=== PATIENT | male | born 1945 | race Caucasian/White ===

== ENCOUNTER 2018-12-06 11:37 | Inpatient (IN) | payer OTHER, MEDICARE ==
[~2018-12-06] VITALS: Ht 170.2 cm; Wt 63.5 kg
[2018-12-06 11:57] LABS: PCO2 Arterial 29.4 mmHg (35-45); PO2 Arterial 71.7 mmHg (80-100); pH Blood Arterial 7.42 (7.35-7.45)
[2018-12-06 12:03] LABS: BASOPHILS ABSOLUTE AUTO 0.04 K/mm3 (0.00-0.23); BASOPHILS PERCENT AUTO 0 % (0-2); EOSINOPHILS ABSOLUTE AUTO 0.01 K/mm3 (0.00-0.68); EOSINOPHILS PERCENT AUTO 0 % (0-6); Hematocrit 43.6 % (37.0-53.0); Hemoglobin 14.7 g/dL (13.5-17.5); IMMATURE GRAN ABSOLUTE AUTO 0.11 K/mm3 (0.00-0.10); IMMATURE GRAN PERCENT AUTO 1 % (0-1); LYMPHOCYTES ABSOLUTE AUTO 0.87 K/mm3 (0.84-5.20); LYMPHOCYTES PERCENT AUTO 4 % (21-46); MONOCYTES ABSOLUTE AUTO 0.68 K/mm3 (0.16-1.47); MONOCYTES PERCENT AUTO 3 % (4-13); Mean Corpuscular HGB Conc 33.7 g/dL (31.5-36.5); Mean Corpuscular Volume 95 fL (80-100); Mean Platelet Volume 11.1 fL (9.1-12.4); NEUTROPHILS ABSOLUTE AUTO 20.72 K/mm3 (1.96-9.15); NEUTROPHILS PERCENT AUTO 92 % (41-73); NRBC ABSOLUTE 0.02 K/mm3 (0.00-0.02); NRBC Auto 0.1 /100 WBC (0.0-0.2); Platelet Count 208 K/mm3 (150-400); RDW Coefficient Variation 14.6 % (11.7-14.2); RDW Standard Deviation 50.8 fL (35.1-46.3); Red Blood Cell Count 4.59 M/mm3 (4.30-5.90); White Blood Cell Count 22.43 K/mm3 (4.00-11.30)
[2018-12-06 12:26] LABS: Alanine Aminotransfer (ALT/SGP 42 U/L (12-78); Albumin/Globulin Ratio 0.8 (0.8-1.8); Alk Phos 125 U/L (50-136); Anion Gap 11 mmol/L (6-16); Aspartate Aminotrans (AST/SGOT 47 U/L (12-37); Bilirubin, Total 0.8 mg/dL (0.1-1.0); Blood Urea Nitrogen 8 mg/dL (8-24); Bun/Creatinine Ratio 7.9 (12.0-20.0); CO2, Blood 23 mmol/L (21-32); Calcium, Blood 8.1 mg/dL (8.5-10.1); Chloride, Blood 105 mmol/L (98-108); Creatinine, Blood 1.01 mg/dL (0.60-1.20); Globulin, Blood 3.6 g/dL (2.2-4.0); Glomerular Filtration Rate >60 (60-); Glucose, Blood 122 mg/dL (70-99); Potassium, Blood 3.4 mmol/L (3.5-5.5); Sodium, Blood 139 mmol/L (136-145); Total Protein, Blood 6.6 g/dL (6.4-8.2)
[2018-12-06] MEDS ORDERED: ALBUTEROL (12:32)
[2018-12-06] MEDS ORDERED: ATOR20 PO (12:32)
[2018-12-06] MEDS ORDERED: B-121000 MC2 PO (12:33)
[2018-12-06] MEDS ORDERED: BUDE6HFA INH (12:33)
[2018-12-06] MEDS ORDERED: FOLI1 PO (12:34)
[2018-12-06] MEDS ORDERED: Chest Congesti400 MG PO (12:34)
[2018-12-06] MEDS ORDERED: MAGOXI400 PO (12:37)
[2018-12-06] MEDS ORDERED: METO100ER PO (12:37)
[2018-12-06] MEDS ORDERED: HYDHCL25 PO (12:37)
[2018-12-06] MEDS ORDERED: Hair, Skin & N1 EACH (12:38)
[2018-12-06] MEDS ORDERED: TERA5 PO (12:42)
[2018-12-06] MEDS ORDERED: DALIRESP500 MCG PO (12:42)
[2018-12-06] MEDS ORDERED: Thiamine HCl100 MG PO (13:36)
[2018-12-06] MEDS ORDERED: SPIRIVA RESPIMAT4 GM IH (13:37)
[2018-12-06] MEDS ORDERED: TRIA15CR3 (13:37)
[2018-12-06] MEDS ORDERED: Aqua Care71 GM (13:38)
--- NOTE | 2018-12-06 16:58 | NUR ---
PT BROUGHT TO PCU 15 FROM ED REPORT OBTAINED, PT ABLE TO STAND AND TRANSFERT TO BED WITH ONE PERSON ASSIT, A/OX3, VERY [place], COOPERATIVE WITH CARE, FOLLOWS COMMANDS WELL, BUT AFTER ORIENTING TO ROOM LAYOUT AND CALL SYSTEM, AND INSTRUCTING HIM TO CALL IF HE NEEDS TO GET OOB HE ATTEMPTED TO GET UP, BED ALARM WAS SET SO CAME IN QUICKLY. LUNGS ARE VERY DIM T/O, A BIT COURSE, NO COUGH NOTED, ACTIVITY INTOLERANCE, HE IS HOME 02 DEPENDENT ON 3-5 LITERS, PLACED HIM ON 5 LITERS SO HE COULD SIT UP AND VOID AND HAVE A DRINK OF WATER, AFTER A FEW MINUTES SATS DROPPED TO 85%, PLACED HIM BACK ON BIPAP, HRR, TELE IN PLACE RUNING ST PER MONITOR, SEE STRIP, NO EDEMA NOTED, PPP+1, CAP REFILL <3SEC, VS STABLE, AFEBRILE, IV SITES ARE CLEAR AND PATENT, BTX4, ABD ROUND SOFT NONTENDER, VOIDS WITHOUT DIFF, CLEAR YELLOW URINE, SKIN C/W/D, MAEW, RISSA ,CALL LIGHT IN REACH.
--- NOTE | 2018-12-06 19:06 | NUR ---
PT UP TO BSC FOR BM, IS IMPULSIVE AND ATTEMPTED TO GET HIMSELF UP AND GOT TANGLED IN HIS LINES, REINFORCED TO CALL WHEN GETTING UP. BECAME VERY SOB, PUT HIM BACK ON HIS BIPAP, TOOK ABOUT FIVE MINUTES TO RECOVER. HE IS EATING DINNER AT THIS TIME. CALL LIGHT IN REACH.
[2018-12-06 23:38] LABS: Adenovirus Not Detected (NOT DETECT); Bordetella pertussis Not Detected (NOT DETECT); Chlamydophila pneumoniae Not Detected (NOT DETECT); Coronavirus 229E Not Detected (NOT DETECT); Coronavirus HKU1 Not Detected (NOT DETECT); Coronavirus NL63 Not Detected (NOT DETECT); Coronavirus OC43 Not Detected (NOT DETECT); Human Metapneumovirus Not Detected (NOT DETECT); Human Rhinovirus/Enterovirus Not Detected (NOT DETECT); Influenza A Not Detected (NOT DETECT); Influenza A/2009-H1 Not Detected (NOT DETECT); Influenza A/H1 Not Detected (NOT DETECT); Influenza A/H3 Not Detected (NOT DETECT); Influenza B Not Detected (NOT DETECT); Mycoplasma pneumoniae Not Detected (NOT DETECT); Parainfluenza Virus 1 Not Detected (NOT DETECT); Parainfluenza Virus 2 Not Detected (NOT DETECT); Parainfluenza Virus 3 Not Detected (NOT DETECT); Parainfluenza Virus 4 Not Detected (NOT DETECT); Respiratory Syncytial Virus Not Detected (NOT DETECT)
[2018-12-07 02:47] LABS: Source, Urine Clean Catch
[2018-12-07 02:52] LABS: Bilirubin, Urine Neg (Neg); Blood, Urine Neg (Neg); Glucose Qualitative, Urine 3+ (Neg); Ketones, Urine 1+ (Neg); Leukocyte Esterase, Urine Neg (Neg); Nitrite, Urine Neg (Neg); Protein, Urine Neg (Neg); Specific Gravity, Urine 1.015 (1.003-1.022); Urobilinogen, Urine NORM (Normal)
[2018-12-07 02:53] LABS: Appearance, Urine Clear (Clear); Color, Urine Yellow (P-Yellow)
[2018-12-07 04:01] LABS: Hematocrit 40.8 % (37.0-53.0); Hemoglobin 13.6 g/dL (13.5-17.5); Mean Corpuscular HGB 32.2 pg (26.0-34.0); Mean Corpuscular HGB Conc 33.3 g/dL (31.5-36.5); Mean Corpuscular Volume 97 fL (80-100); Mean Platelet Volume 11.6 fL (9.1-12.4); Platelet Count 191 K/mm3 (150-400); RDW Coefficient Variation 14.6 % (11.7-14.2); RDW Standard Deviation 52.1 fL (35.1-46.3); Red Blood Cell Count 4.23 M/mm3 (4.30-5.90); White Blood Cell Count 41.44 K/mm3 (4.00-11.30)
[2018-12-07 04:20] LABS: Alanine Aminotransfer (ALT/SGP 37 U/L (12-78); Albumin, Blood 2.8 g/dL (3.4-5.0); Albumin/Globulin Ratio 0.8 (0.8-1.8); Alk Phos 94 U/L (50-136); Anion Gap 8 mmol/L (6-16); Aspartate Aminotrans (AST/SGOT 35 U/L (12-37); Bilirubin, Total 0.6 mg/dL (0.1-1.0); Blood Urea Nitrogen 11 mg/dL (8-24); Bun/Creatinine Ratio 15.2 (12.0-20.0); CO2, Blood 23 mmol/L (21-32); Calcium, Blood 7.7 mg/dL (8.5-10.1); Chloride, Blood 112 mmol/L (98-108); Creatinine, Blood 0.72 mg/dL (0.60-1.20); Globulin, Blood 3.6 g/dL (2.2-4.0); Glomerular Filtration Rate >60 (60-); Glucose, Blood 186 mg/dL (70-99); Potassium, Blood 4.1 mmol/L (3.5-5.5); Sodium, Blood 143 mmol/L (136-145); Total Protein, Blood 6.4 g/dL (6.4-8.2)
[2018-12-07 04:27] LABS: BAND PERCENT MAN 26 % (0-8); BASOPHILS PERCENT MAN 0 % (0-2); EOSINOPHILS PERCENT MAN 0 % (0-6); LYMPHOCYTES ABSOLUTE MAN 2.48 K/mm3 (0.84-5.20); LYMPHOCYTES PERCENT MAN 6 % (21-46); METAMYELOCYTE ABSOLUTE MAN 0.41 K/mm3 (0.00-0.00); METAMYELOCYTE PERCENT MAN 1 % (0-0); MONOCYTES ABSOLUTE MAN 1.65 K/mm3 (0.16-1.47); MONOCYTES PERCENT MAN 4 % (4-13); MYELOCYTE ABSOLUTE MAN 0.82 K/mm3 (0.00-0.00); MYELOCYTE PERCENT MAN 2 % (0-0); NEUTROPHILS ABSOLUTE MAN 36.05 K/mm3 (1.96-9.15); SEG NEUTROPHILS PERCENT MAN 61 % (41-73); TOTAL CELLS COUNTED 100
--- NOTE | 2018-12-07 04:56 | NUR ---
SHIFT SUMMARY: PATIENT WORE BIPAP ALL SHIFT, COMPLIANT WITH TREATMENT, ADMISSION COMPLETED. WILL BRING HEARING AIDS IN TODAY (VERY SAXMAN). PATIENT WBC DOUBLED OVERNIGHT, MD TO BE INFORMED, RESPERATORY PANEL NEGATIVE, AWAITING AM X-RAY. CALL LIGHT WITHIN REACH, VSS, BED LOW AND LOCKED WITH EXIT ALARM ON.
--- NOTE | 2018-12-07 07:35 | NUR ---
RECEIVED REPORT FROM MARLENE DOTY, AND ASSUMED CARE OF PT.
--- NOTE | 2018-12-07 08:05 | NUR ---
PT TAKEN TO RADIOLOGY VIA WHEELCHAIR.
[2018-12-07 11:14] LABS: Alanine Aminotransfer (ALT/SGP 34 U/L (12-78); Albumin, Blood 2.5 g/dL (3.4-5.0); Albumin/Globulin Ratio 0.7 (0.8-1.8); Alk Phos 93 U/L (50-136); Anion Gap 8 mmol/L (6-16); Aspartate Aminotrans (AST/SGOT 27 U/L (12-37); Bilirubin, Total 0.7 mg/dL (0.1-1.0); Blood Urea Nitrogen 12 mg/dL (8-24); Bun/Creatinine Ratio 17.5 (12.0-20.0); CO2, Blood 22 mmol/L (21-32); Calcium, Blood 7.7 mg/dL (8.5-10.1); Chloride, Blood 109 mmol/L (98-108); Creatinine, Blood 0.69 mg/dL (0.60-1.20); Globulin, Blood 3.6 g/dL (2.2-4.0); Glomerular Filtration Rate >60 (60-); Glucose, Blood 183 mg/dL (70-99); Potassium, Blood 3.6 mmol/L (3.5-5.5); Sodium, Blood 139 mmol/L (136-145); Total Protein, Blood 6.1 g/dL (6.4-8.2)
[2018-12-07 14:37] LABS: BASOPHILS ABSOLUTE AUTO 0.05 K/mm3 (0.00-0.23); BASOPHILS PERCENT AUTO 0 % (0-2); Hematocrit 35.5 % (37.0-53.0); Hemoglobin 12.1 g/dL (13.5-17.5); LYMPHOCYTES ABSOLUTE AUTO 0.75 K/mm3 (0.84-5.20); LYMPHOCYTES PERCENT AUTO 2 % (21-46); MONOCYTES ABSOLUTE AUTO 0.96 K/mm3 (0.16-1.47); MONOCYTES PERCENT AUTO 3 % (4-13); Mean Corpuscular HGB 32.5 pg (26.0-34.0); Mean Corpuscular HGB Conc 34.1 g/dL (31.5-36.5); Mean Corpuscular Volume 95 fL (80-100); Mean Platelet Volume 11.7 fL (9.1-12.4); Platelet Count 154 K/mm3 (150-400); RDW Coefficient Variation 14.9 % (11.7-14.2); RDW Standard Deviation 52.3 fL (35.1-46.3); Red Blood Cell Count 3.72 M/mm3 (4.30-5.90)
[2018-12-07 14:42] LABS: EOSINOPHILS PERCENT AUTO 0 % (0-6); IMMATURE GRAN ABSOLUTE AUTO 1.78 K/mm3 (0.00-0.10); IMMATURE GRAN PERCENT AUTO 5 % (0-1); NEUTROPHILS ABSOLUTE AUTO 30.76 K/mm3 (1.96-9.15); NEUTROPHILS PERCENT AUTO 90 % (41-73)
[2018-12-07 15:17] LABS: BAND PERCENT MAN 10 % (0-8); BASOPHILS PERCENT MAN 0 % (0-2); EOSINOPHILS PERCENT MAN 0 % (0-6); MONOCYTES PERCENT MAN 0 % (4-13); SEG NEUTROPHILS PERCENT MAN 90 % (41-73); TOTAL CELLS COUNTED 100
[2018-12-08 03:34] LABS: BASOPHILS ABSOLUTE AUTO 0.04 K/mm3 (0.00-0.23); BASOPHILS PERCENT AUTO 0 % (0-2); EOSINOPHILS PERCENT AUTO 0 % (0-6); Hematocrit 38.6 % (37.0-53.0); Hemoglobin 12.8 g/dL (13.5-17.5); IMMATURE GRAN ABSOLUTE AUTO 1.38 K/mm3 (0.00-0.10); IMMATURE GRAN PERCENT AUTO 5 % (0-1); LYMPHOCYTES ABSOLUTE AUTO 1.23 K/mm3 (0.84-5.20); LYMPHOCYTES PERCENT AUTO 4 % (21-46); MONOCYTES PERCENT AUTO 4 % (4-13); Mean Corpuscular HGB 32.3 pg (26.0-34.0); Mean Corpuscular HGB Conc 33.2 g/dL (31.5-36.5); Mean Platelet Volume 11.7 fL (9.1-12.4); NEUTROPHILS PERCENT AUTO 88 % (41-73); Platelet Count 167 K/mm3 (150-400); RDW Coefficient Variation 14.9 % (11.7-14.2); RDW Standard Deviation 53.9 fL (35.1-46.3); Red Blood Cell Count 3.96 M/mm3 (4.30-5.90); White Blood Cell Count 30.65 K/mm3 (4.00-11.30)
[2018-12-08 03:38] LABS: Mean Corpuscular Volume 98 fL (80-100)
[2018-12-08 04:06] LABS: BAND PERCENT MAN 15 % (0-8); BASOPHILS PERCENT MAN 0 % (0-2); EOSINOPHILS PERCENT MAN 0 % (0-6); LYMPHOCYTES ABSOLUTE MAN 1.83 K/mm3 (0.84-5.20); LYMPHOCYTES PERCENT MAN 6 % (21-46); MONOCYTES ABSOLUTE MAN 0.61 K/mm3 (0.16-1.47); MONOCYTES PERCENT MAN 2 % (4-13); NEUTROPHILS ABSOLUTE MAN 28.19 K/mm3 (1.96-9.15); SEG NEUTROPHILS PERCENT MAN 77 % (41-73); TOTAL CELLS COUNTED 100
--- NOTE | 2018-12-08 04:57 | NUR ---
SHIFT SUMMARY: PT A&O X4. O2 SATS ABOVE 90% ON 5L O2 VIA NC. PT REPORTS 2-5L O2 AT BASELINE. DYSPNEIC UPON EXERTION. USING BIPAP THROUGHOUT NIGHT. TACHYPNEIC AT TIMES. VOIDING IN URINAL AND BSC. SBA FOR ALL TRANSFERS. BANANA BAG AND NS INFUSING PER EMAR. CIWA'S STABLE T/O SHIFT BELOW 8. POWERGLIDE INSERTED TO CORY.
--- NOTE | 2018-12-08 07:59 | NUR ---
RECEIVED REPORT AND ASSUMED CARE OF PATIENT. HE IS PLEASANT AND ABLE TO EXPRESS NEED APPROPRIATELY. [facility] CALLED AND REPORT THAT CULTURES DRAWN THERE ARE POSITIVE FOR GRAM - COCCOBACILLUS. CALLED PHARMACY TO CHECK IF ABX ARE SUFFICIENT.
--- NOTE | 2018-12-08 08:21 | NUR ---
DR KEYTRATE IN TO SEE PATIENT, HE ORDERED PT/OT AND MUCINEX WELL A TRANSFER TO SURGICAL FLOOR. WILL COMPLETE ORDERS AND TRANSFER PATIENT TO ROOM 208.
[2018-12-08 09:12] LABS: Anion Gap 6 mmol/L (6-16); Blood Urea Nitrogen 13 mg/dL (8-24); Bun/Creatinine Ratio 17.6 (12.0-20.0); CO2, Blood 24 mmol/L (21-32); Chloride, Blood 110 mmol/L (98-108); Creatinine, Blood 0.74 mg/dL (0.60-1.20); Glomerular Filtration Rate >60 (60-); Glucose, Blood 108 mg/dL (70-99); Potassium, Blood 3.8 mmol/L (3.5-5.5); Sodium, Blood 140 mmol/L (136-145)
--- NOTE | 2018-12-08 17:41 | NUR ---
SUMMARY REPORTS SOB IS A "LITTLE BETTER" DENIES ANY OTHER DISCOMFORT, NON-PRODUCTIVE COUGH NOTED TODAY, AMBULATES TO THE BATHROOM TO VOID, CREEK, PLEASANT AND COOPERATIVE, NO ACUTE CHANGES THIS SHIFT.
--- NOTE | 2018-12-09 05:02 | NUR ---
SHIFT SUMMARY SITTING UP ON SIDE OF BED WITH TV ON IN BACKGROUND. NO C/O PAIN, OR DISCOMFORT THIS SHIFT. DENEIS FURTHER NEEDS OR WANTS AT THIS TIME. SAFETY MEAUSRES IN PLACE. WILL GIVE HAND OFF TO ONCOMING SHIFT USING SBAR.
[2018-12-09 05:29] LABS: BASOPHILS ABSOLUTE AUTO 0.01 K/mm3 (0.00-0.23); BASOPHILS PERCENT AUTO 0 % (0-2); EOSINOPHILS PERCENT AUTO 0 % (0-6); Hemoglobin 11.8 g/dL (13.5-17.5); IMMATURE GRAN ABSOLUTE AUTO 0.23 K/mm3 (0.00-0.10); IMMATURE GRAN PERCENT AUTO 2 % (0-1); LYMPHOCYTES PERCENT AUTO 9 % (21-46); MONOCYTES ABSOLUTE AUTO 0.65 K/mm3 (0.16-1.47); MONOCYTES PERCENT AUTO 4 % (4-13); Mean Corpuscular HGB 31.8 pg (26.0-34.0); Mean Corpuscular HGB Conc 32.8 g/dL (31.5-36.5); Mean Corpuscular Volume 97 fL (80-100); Mean Platelet Volume 11.9 fL (9.1-12.4); NEUTROPHILS ABSOLUTE AUTO 12.88 K/mm3 (1.96-9.15); NEUTROPHILS PERCENT AUTO 86 % (41-73); Platelet Count 168 K/mm3 (150-400); RDW Standard Deviation 54.2 fL (35.1-46.3); Red Blood Cell Count 3.71 M/mm3 (4.30-5.90); White Blood Cell Count 15.07 K/mm3 (4.00-11.30)
--- NOTE | 2018-12-09 13:15 | NUR ---
POST THERAPY/HOME O2 EVAL PT HAD A VERY HARD TIME RECOVERING AFTER WORKING WITH PHYSICAL THERAPY, USING RESTROOM, AND HOME O2 EVAL; PT BEGAN DESATING, REQUIRING MORE O2, AND WORK OF BREATHING INCREASED. APPROX 20 MINS AFTER THESE EVENTS, PT WAS SITTING AT SIDE OF BED WITH NO ACCESSORY MUSCLE USE OR TACHYPNEA NOTED. STATES HE THINKS HE DID TOO MUCH TOO CLOSE TOGETHER.
--- NOTE | 2018-12-09 17:54 | NUR ---
SHIFT SUMMARY PT HAS DONE WELL SINCE HIS EVENT POST THERAPY/HOME O2 EVAL, BUT HAS BEEN FATIGUED. NAPPED TWICE AND STATES FEELS BETTER. STRONG FREQUENT MOIST COUGH, NOT PRODUCTIVE THIS AM.
[2018-12-10 04:59] LABS: BASOPHILS ABSOLUTE AUTO 0.04 K/mm3 (0.00-0.23); BASOPHILS PERCENT AUTO 0 % (0-2); EOSINOPHILS ABSOLUTE AUTO 0.01 K/mm3 (0.00-0.68); EOSINOPHILS PERCENT AUTO 0 % (0-6); Hemoglobin 12.4 g/dL (13.5-17.5); IMMATURE GRAN ABSOLUTE AUTO 0.25 K/mm3 (0.00-0.10); IMMATURE GRAN PERCENT AUTO 2 % (0-1); LYMPHOCYTES ABSOLUTE AUTO 2.21 K/mm3 (0.84-5.20); LYMPHOCYTES PERCENT AUTO 16 % (21-46); MONOCYTES ABSOLUTE AUTO 0.93 K/mm3 (0.16-1.47); MONOCYTES PERCENT AUTO 7 % (4-13); Mean Corpuscular HGB 32.3 pg (26.0-34.0); Mean Corpuscular HGB Conc 33.5 g/dL (31.5-36.5); Mean Corpuscular Volume 96 fL (80-100); Mean Platelet Volume 11.7 fL (9.1-12.4); NEUTROPHILS PERCENT AUTO 75 % (41-73); NRBC ABSOLUTE 0.02 K/mm3 (0.00-0.02); NRBC Auto 0.1 /100 WBC (0.0-0.2); Platelet Count 190 K/mm3 (150-400); RDW Coefficient Variation 14.7 % (11.7-14.2); RDW Standard Deviation 52.2 fL (35.1-46.3); Red Blood Cell Count 3.84 M/mm3 (4.30-5.90); White Blood Cell Count 13.64 K/mm3 (4.00-11.30)
[2018-12-10 05:27] LABS: Alanine Aminotransfer (ALT/SGP 46 U/L (12-78); Albumin, Blood 2.6 g/dL (3.4-5.0); Albumin/Globulin Ratio 0.8 (0.8-1.8); Alk Phos 94 U/L (50-136); Anion Gap 3 mmol/L (6-16); Aspartate Aminotrans (AST/SGOT 41 U/L (12-37); Bilirubin, Total 0.3 mg/dL (0.1-1.0); Blood Urea Nitrogen 17 mg/dL (8-24); Bun/Creatinine Ratio 21.1 (12.0-20.0); CO2, Blood 27 mmol/L (21-32); Calcium, Blood 8.3 mg/dL (8.5-10.1); Chloride, Blood 112 mmol/L (98-108); Creatinine, Blood 0.81 mg/dL (0.60-1.20); Globulin, Blood 3.4 g/dL (2.2-4.0); Glomerular Filtration Rate >60 (60-); Glucose, Blood 93 mg/dL (70-99); Potassium, Blood 4.2 mmol/L (3.5-5.5); Sodium, Blood 142 mmol/L (136-145)
--- NOTE | 2018-12-10 06:07 | NUR ---
SHIFT SUMMARY SITTING UP ON SIDE OF BED WITH TV ON. NO C/O PAIN, OR DISCOMFORT THIS SHIFT. DENEIS FURTHER NEEDS OR WANTS AT THIS TIME. SAFETY MEAUSRES IN PLACE. WILL GIVE HAND OFF TO ONCOMING SHIFT USING SBAR.
--- NOTE | 2018-12-10 09:22 | NUR ---
DISCUSSED CODE STATUS WITH PT (IN ACCORDANCE WITH HOSPITALIST ADMIT NOTE SHOWED DNR. CHART SHOWS FULL CODE). CONFIRMED DESIRES DNR STATUS. TELEPHONE CALL WITH HOSPITALIST FOR DNR ORDER.
--- NOTE | 2018-12-10 09:30 | NUR ---
CONFIRMED CODE STATUS DNR WITH LAURA RN. PURPLE BAND ON L WRIST.
[2018-12-10] MEDS ORDERED: ALBU90OI6 INH (12:13)
[2018-12-10] MEDS ORDERED: ACET325 PO (12:14)
[2018-12-10] MEDS ORDERED: GUAI600T33 PO (12:14)
[2018-12-10] MEDS ORDERED: CEFP200 PO (12:15)
[2018-12-10] MEDS ORDERED: PANT40 PO (12:16)
[2018-12-10] MEDS ORDERED: K-Dur 20 meq T20 MEQ PO (12:17)
[2018-12-10] MEDS ORDERED: PRED10 PO (12:19)
[2018-12-10] MEDS ORDERED: Florastor250 MG PO (12:20)
[2018-12-10] MEDS ORDERED: AZIT500 PO (12:20)
--- NOTE | 2018-12-10 12:45 | NUR ---
DISCHARGE SUMMARY PT A&OX4, VSS, LEFT ROOM VIA WC W/FACILITIES ENGINEER, TO GO HOME WITH SERA, WITH ALL PERSONAL POSSESSIONS INCLUDING DISCHARGE PACKET. DISCHARGE INSTRUCTIONS PROVIDED. PT REP UNDERSTANDING THOSE INSTRUCTIONS. EXT DWELL DC'D.
--- NOTE | 2018-12-10 16:22 | NUR ---
Met pt. sitting in a chair and talking with the spouse in the room ,p[t. is doing well and may go home today or mlai offered prayers and blessed him.
== END 2018-12-10 13:16 | disposition home or self-care (01) | DRG 871 ==
LOC: ER 11:37 → PCU 14:03 → SURS 16:15 → PCU 12-07 07:43 → SURS 12-08 09:49
PROVIDERS: Internal Medicine; ADMIT Family Medicine
PROC: 5A09357 Assistance with Respiratory Ventilation, Less than 24 Consecutive Hours, Continuous Positive Airway Pressure (ICD-10-PCS; principal; 2018-12-06)
DX: A41.9 Sepsis, unspecified organism (principal); J96.21 Acute and chronic respiratory failure with hypoxia; R65.21 Severe sepsis with septic shock; J18.1 Lobar pneumonia, unspecified organism; J44.1 Chronic obstructive pulmonary disease with (acute) exacerbation; J44.0 Chronic obstructive pulmonary disease with (acute) lower respiratory infection; Z99.81 Dependence on supplemental oxygen; F17.210 Nicotine dependence, cigarettes, uncomplicated; R74.0 Nonspecific elevation of levels of transaminase and lactic acid dehydrogenase [LDH]; E87.6 Hypokalemia; Z66 Do not resuscitate; R39.11 Hesitancy of micturition; N40.1 Benign prostatic hyperplasia with lower urinary tract symptoms; K70.9 Alcoholic liver disease, unspecified
CPT/HCPCS: 36415; 36600; 71045; 71046; 80048; 80053; 81003; 82803; 83605; 85025; 87040; 87486; 87581; 87633; 87798; 93005; 93010; 94640; 94644; 94660; 94761; 94762; 96361; 96365; 97162; 97165; 97530; 97535; 99285-25; C1751; C9113; J0456; J0696; J1650; J2060; J3411; J3475; J7030; J7042; J7050; J7120; J7512